=== PATIENT | female | born 1965 | race Caucasian/White ===

== ENCOUNTER 2020-03-08 19:59 | Emergency (ER) | payer OTHER ==
--- OUTSIDE RECORDS SUMMARY | 2020-03-08 20:00 | XMS REPORT | Clinical Summary ---
:1965 Author Organization [facility] Address [address] [place] [address] Care Team Providers Name Role Phone Rip Primary Care Provider Allergies Active Allergy Reactions Severity Noted Date Comments No Known Drug Allergies 07/07/2015 Medications Medication Sig Dispensed Refills Start Date End Date Status valACYclovir (VALTREX) Take 500 mg by 0 Active 500 MG tablet mouth daily as needed for Outbreaks. ibuprofen Take 800 mg by 0 Activ e (ADVIL,MOTRIN) 800 MG mouth every 6 tablet (six) hours as needed for Pain. amLODIPine (NORVASC) Take 10 mg by 0 Active 10 MG tablet mouth daily. citalopram (CELEXA) 20 Take 20 mg by 0 Active MG tablet mouth daily. rosuvastatin (CRESTOR) Take 10 mg by 0 Active 10 MG tablet mouth daily. FERROUS FUMARATE (IRON Take 28 mg by 0 Active ORAL) mouth daily. POTASSIUM GLUCONATE Take 99 mg by 0 Active ORAL mouth daily. GLUCOSAMINE/CHONDROITI Take by mouth 2 0 Active N SULF A (two) times daily. (GLUCOSAMINE-CHONDROIT IN ORAL) multivitamin capsule Take 1 capsule by 0 Active mouth daily. imiquimod (ALDARA) 5 % Apply topically 3 0 Active cream (three) times a week Wash hands before and after use. Do not cover. Discard unused portion. . Active Problems Not on file Social History Tobacco Use Types Packs/Day Years Used Date Current Every Day Smoker 0.5 35 Smokeless Tobacco: Never Used Alcohol Use Drinks/Week oz/Week Comments No Sex Assigned at Date Recorded Not on file Last Filed Vital Signs Not on file Plan of Treatment Not on file Results Not on fileafter 03/08/2019 Insurance Payer Benefit Plan / Subscriber ID Effective Dates Phone Addre ss Type Group AETNA - MGD AETNA HMO POS [id number] 2016-Present HMO/POS CARE QPOS
--- OUTSIDE RECORDS SUMMARY | 2020-03-08 20:01 | XMS REPORT | Continuity of Care Document ---
:1965 Author Organization [facility] t Address 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 Family History Family Member Diagnosis Comments Start Date Stop Date Source Maternal aunt Brain cancer MD [facility] on Maternal grandmother Lung cancer MD Chao Natural mother Breast cancer MD Ancelmo gomez Natural mother Leukemia MD Mychal patton Social History Social Habit Start Date Stop Date Quantity Comments Source Sex Assigned At MD [facility] Cigarettes smoked 2019-01-19 2019-01-19 MD Ancelmo gomez current (pack per 00:00:00 00:00:00 day) - Reported Cigarette pack-years 2019-01-19 2019-01-19 MD Gonzalo chavez 00:00:00 00:00:00 Tobacco use and 2019-01-19 2019-01-19 Never used MD [facility] exposure 00:00:00 00:00:00 Alcohol intake 2019-01-19 2019-01-19 Ex-drinker MD Mychal patton 00:00:00 00:00:00 (finding) History of tobacco 1977-12-06 2019-01-14 Current smoker MD Chao use 00:00:00 00:00:00 Smoking Status Start Date Stop Date Source Former smoker 2019-01-19 00:00:00 2019-01-19 00:00:00 MD Brown son Current every day 2017-01-08 00:00:00 [facility] Medications Ordered Filled Start Stop Current Ordering Indication Dosage Frequency Signature Comments Components Source Medication Medication Date Date Medication? Clinician (SIG) Name Name varenicline 2018-04 Yes Tobacco TAKE 1 M D (CHANTIX) 1 05-23 dependence TABLET BY Anderso mg tablet 00:00: syndrome MOUTH n 00 TWICE A DAY CHANTIX 2018-04- No Tobacco TAKE 1 MD mg tablet 05-16 dependence TABLET BY Anderso 00:00: 00:00 syndrome MOUTH n 00 :00 TWICE A DAY CHANTIX 2018-04- No Tobacco TAKE 1 MD mg tablet 003-16 dependence TABLET BY Anderso 00:00: 00:00 syndrome MOUTH n 00 :00 TWICE A DAY CHANTIX 2018-04- No Tobacco 1mg Take 1 MD mg tablet 003-23 dependence tablet (1 Anderso 00:00: 00:00 syndrome mg) by n 00 :00 mouth twice daily. acetaminoph Yes TAKE 1 MD en-codeine 8-30 TABLET BY Ancelmo bennett (TYLENOL 00:00: MOUTH n #3) 300 00 EVERY 6 mg-30 mg HOURS tablet NEEDED FOR PAIN meloxicam Yes TAKE 1 MD (MOBIC) 15 8-29 TABLET BY Ancelmo rso mg tablet 00:00: MOUTH n 00 EVERY DAY temazepam 2018- Yes TK ONE C MD (RESTORIL) 7-30 PO QHS PRN And erso 30 mg 00:00: n capsule 00 AMLODIPINE 2018- Yes 10mg Take 10 mg M D BESYLATE, 5-08 by mouth Andreas o BULK, MISC 20:29: daily. n 18 diphenhydrA 2018 Yes 25mg Take 25 mg MD MINE 5-08 by mouth Anderso (BENADRYL) 20:29: as needed. n 25 mg 18 capsule MULTIVITAMI 2019- Yes 1{tbl} Take 1 MD N/IRON/FOLI 5-08 tablet by And erso C ACID 20:29: mouth. n (CENTRUM 18 COMPLETE ORAL) citalopram Yes 20mg Take 20 mg M D (CeleXA) 20 5-08 by mouth Ancelmo rso mg tablet 20:29: daily. n 18 rosuvastati 2019 Yes 10mg Take 10 mg MD n (CRESTOR) 5-08 by mouth Ancelmo rso 10 mg 20:29: daily. n tablet 18 GLUC/CHND/O Yes Take by MD M3/DHA/EPA/ 5-08 mouth. Andreas o FISH/STR 20:29: n (GLUCOSAMIN 18 E CHONDROITIN PLUS ORAL) POTASSIUM Yes 1{tbl} Take 1 MD ORAL 5-08 tablet by Anderso 20:29: mouth n 18 daily. aspirin 81 Yes 81mg Take 81 mg M D mg EC 5-08 by mouth Anderso tablet 20:29: daily. n 18 CALCIUM Yes Take by ACETATE, 5-08 mouth Anderso BULK, MISC 20:29: daily. n 18 traMADol Yes 50mg Take 50 mg MD (ULTRAM) 50 5-08 by mouth Ancelmo rso mg tablet 20:29: every 6 n 18 (six) hours as needed. cyclobenzap Yes 10mg Take 10 mg MD rine 5-08 by mouth Anderso (FLEXERIL) 20:29: as needed. n 10 mg 18 tablet valACYclovi Yes 500mg Take 500 M D r (VALTREX) 5-08 mg by Anderso 500 mg 20:29: mouth as n tablet 18 needed. valACYclovi Yes 500mg Take [address] r (VALTREX) 9-13 mg by [facility] - 500 MG 10:43: mouth Medical tablet 27 daily as Center needed for Outbreaks. ibuprofen 2017 Yes 800mg Take [address] [facility] (ADVIL,MOTR 9-13 mg by [facility] - [place]) 800 MG 10:43: mouth Medica l tablet 27 every 6 Center (six) hours as needed for Pain. amLODIPine Yes 10mg QD Take [address] (NORVASC) 9-13 by mouth [facility] - 10 MG 10:43: daily. Medical tablet [address] [place] citalopram Yes 20mg QD Take [address] (CELEXA) 20 9-13 by mouth [facility] - MG tablet 10:43: daily. Medica l [address] [place] rosuvastati Yes 10mg QD Take [address] [facility] n (CRESTOR) 9-13 by mouth [facility] - 10 MG 10:43: daily. Medical tablet 27 [place] FERROUS Yes 28mg QD Take [address] [facility] FUMARATE 9-13 by mouth [facility] - (IRON ORAL) 10:43: daily. Medi mouna [address] [place] POTASSIUM Yes 99mg QD Take [address] GLUCONATE 9-13 by mouth [facility] - ORAL 10:43: daily. [address] GLUCOSAMINE Yes Q.5D Take by [facility] /CHONDROITI 01-08 mouth 2 [facility] - N SULF A 10:43: (two) Medical (GLUCOSAMIN 27 times Center E-CHONDROIT daily. IN ORAL) multivitami Yes 1{capsu QD Take [address] n capsule 01-08 le} capsule by [facility] - 10:43: mouth Medical 27 daily. [place] imiquimod Yes [id number] Apply [facility] (ALDARA) 5 9- [id number] topically [facility] - % cream 10:43: 3W 3 (three) Medic al 27 times a Center week Wash hands before and after use. Do not cover. Discard unused portion. . Procedures This patient has no known procedures. Results Test Description Test Time Test Comments Results Result Comments Source TISSUE EXAM 2017-01-09 Surgical Pathology 10:20:00 Report Case: [id number] Authorizing Provider: Myles Duque MD Collected: 01/08/201718 Ordering Location: [facility] Received: 01/08/2017 1146 Pathologist: Stephie Robles MD Specimen: Polyp, Colon - Rectum, x3 COLON, RECTAL POLYPS X3, BIOPSY: - HYPERPLASTIC POLYPS Signing Pathologist Direct Phone Line: [phone] cheng signed by Stephie Robles MD on 01/09/2017 at 10:20 [id number] colonoscopyPolyp, colon rectum [id number] is received in fixative and designated as "polyp, colon rectum", and consists of three pink-liu tissue fragments ranging in size from 0.2 to 0.3 cm, in greatest dimension. The specimen is entirely submitted into A1. MG/pl Performed [facility] [place], Department of Pathology, [address] [place] [id number], Rvewlx [facility], Department of Pathology, [address] [place] [id number], [facility] [place], Department of [facility]ology, [address] [place] [id number], BASIC METABOLIC PANEL 2016-12-16 11:13:00 Test Item Value Reference Range Interpretation Comme nts SODIUM (BEAKER) (test code 145 meq/L 135-148 = 381) POTASSIUM (BEAKER) (test 4.1 meq/L 3.6-5.5 code = 379) CHLORIDE (BEAKER) (test 109 meq/L 98-106 H code = 382) CO2 (BEAKER) (test code = 29 meq/L 20-29 355) BLOOD UREA NITROGEN 14 mg/dL 10-26 (BEAKER) (test code = 354) CREATININE (BEAKER) (test 0.70 mg/dL 0.50-1.20 code = 358) GLUCOSE RANDOM (BEAKER) 93 mg/dL 70-110 (test code = 652) CALCIUM (BEAKER) (test code 9.1 mg/dL 8.5-10.5 = 697) EGFR (BEAKER) (test code = 88 mL/min/1.73 sq m ESTIMATED GFR IS NOT 1092) ACCURATE CRE ATININE CLEARANCE IN GA EDICTING GLOMERULAR FILT RATION RATE. ESTIMATED GFR IS NOT APPLICABLE FOR DIALYSIS PATIENTS. CBC W/PLT COUNT & AUTO [id number] 10:43:00 Test Item Value Reference Range Interpretation Comments WHITE BLOOD CELL COUNT (BEAKER) 6.9 K/ L 4.0-10.0 (test code = 775) RED BLOOD CELL COUNT (BEAKER) 4.25 M/ L 4.00-5.00 (test code = 761) HEMOGLOBIN (BEAKER) (test code = 12.7 GM/DL 12.0-15.0 410) HEMATOCRIT (BEAKER) (test code = 38.7 % 36.0-45.0 411) MEAN CORPUSCULAR VOLUME (BEAKER) 91.2 fL 82.0-99.0 (test code = 753) MEAN CORPUSCULAR HEMOGLOBIN 30.0 pg 27.0-33.0 (BEAKER) (test code = 751) MEAN CORPUSCULAR HEMOGLOBIN CONC 32.9 GM/DL 32.0-36.0 (BEAKER) (test code = 752) RED CELL DISTRIBUTION WIDTH 13.9 % 10.3-14.2 (BEAKER) (test code = 412) PLATELET COUNT (BEAKER) (test 284 K/CU MM 150-430 code = 756) MEAN PLATELET VOLUME (BEAKER) 8.3 fL 6.5-10.5 (test code = 754) NUCLEATED RED BLOOD CELLS 0 /100 WBC 0-0 (BEAKER) (test code = 413) NEUTROPHILS RELATIVE PERCENT 61 % (BEAKER) (test code = 429) LYMPHOCYTES RELATIVE PERCENT 31 % (BEAKER) (test code = 430) MONOCYTES RELATIVE PERCENT 6 % (BEAKER) (test code = 431) EOSINOPHILS RELATIVE PERCENT 1 % (BEAKER) (test code = 432) BASOPHILS RELATIVE PERCENT 0 % (BEAKER) (test code = 437) NEUTROPHILS ABSOLUTE COUNT 4.20 K/ L 1.80-8.00 (BEAKER) (test code = 670) LYMPHOCYTES ABSOLUTE COUNT 2.10 K/ L 1.48-4.50 (BEAKER) (test code = 414) MONOCYTES ABSOLUTE COUNT (BEAKER) 0.40 K/ L 0.00-1.30 (test code = 415) EOSINOPHILS ABSOLUTE COUNT 0.10 K/ L 0.00-0.50 (BEAKER) (test code = 416) BASOPHILS ABSOLUTE COUNT (BEAKER) 0.00 K/ L 0.00-0.20 (test code = 417)
[2020-03-08 20:30] LABS: Absolute Lymphocytes (CBC) 2.2 K/uL (0.7-4.9); Basophils % 0.5 % (0-1.3); Hematocrit 39.6 % (36.0-45.0); Lymphocytes % 16.5 % (15.3-44.8); MPV 8.7 fL (7.6-11.3); RBC Red Blood Cell Count 4.33 M/uL (3.86-4.86)
[2020-03-08] MEDS ORDERED: NA CHLORIDE 0.9% 1,000 ML ONE (20:32)
[2020-03-08] MEDS ORDERED: ONDANSETRON 4 MG/2 ML VIAL ONE (20:32)
[2020-03-08] MEDS ORDERED: MORPHINE 4 MG/ML SYR ONE ×2 (20:32→21:17)
[2020-03-08 20:45] LABS: Potassium 3.2 mmol/L (3.5-5.1)
[2020-03-08] MEDS ORDERED: FENTANYL CITR 100 MCG/2 ML ONE (21:52)
--- NOTE | 2020-03-08 22:20 | ER ---
Nurse's Notes [facility] Name: Amie Rivera Age: 54 yrs Sex: Female : 1965 Arrival Date: 03/08/2020 Time: 19:59 Bed 5 Private MD: Diagnosis: Calculus of kidney and ureter Presentation: 03/08 20:10 Chief complaint: Patient states: RLQ pain started around 1600 today and has dm5 progressively gotten worse. Pt c/o nausea, denies vomiting. Pt states that she had a BM this morning but it was small. Pt states that she was told by the [facility] that she could have a UTI and took some antibiotics and AZO this evening. Pt now reports pain at 10/10. Pt appears to be unable to focus and is restless. Coronavirus screen: Client denies travel out of the [place] in the last 14 days. At this time, the client does not indicate any symptoms associated with coronavirus-19. Ebola Screen: Patient negative for fever greater than or equal to 101.5 degrees Fahrenheit, and additional compatible Ebola Virus Disease symptoms Patient denies exposure to infectious person. Patient denies travel to an Ebola-affected area in the 21 days before illness onset. No symptoms or risks identified at this time. Initial Sepsis Screen: Does the patient meet any 2 criteria? RR > 20 per min. No. Patient's initial sepsis screen is negative. Does the patient have a suspected source of infection? Yes: Acute abdominal pain. Risk Assessment: Do you want to hurt yourself or someone else? Patient reports no desire to harm self or others. Onset of symptoms was March 08, 2020. 20:10 Method Of Arrival: Ambulatory dm5 20:10 Acuity: KIM 2 dm5 Historical: - Allergies: 21:32 No Known Allergies; wh - PMHx: 21:34 Back Pain; wh - PSHx: 21:34 Cholecystectomy; wh - Immunization history:: Adult Immunizations not up to date. - Social history:: Smoking status: Patient reports the use of cigarette tobacco products, smokes one pack cigarettes per day. Screenin:30 Abuse screen: Denies threats or abuse. Denies injuries from another. Nutritional wh screening: No deficits noted. Tuberculosis screening: No symptoms or risk factors identified. Fall Risk None identified. Assessment: 20:15 General: Appears in no apparent distress. uncomfortable, Behavior is cooperative, wh appropriate for age. Pain: Complains of pain in right lower quadrant Pain does not radiate. Pain currently is 9 out of 10 on a pain scale. Quality of pain is described as dull, sharp, Pain began 4 hours ago. Is intermittent. Neuro: Level of Consciousness is awake, alert, obeys commands, Oriented to person, place, time, situation, Appropriate for age. Cardiovascular: Capillary refill < 3 seconds. Respiratory: Airway is patent Respiratory effort is even, unlabored, Respiratory pattern is regular, symmetrical. GI: Abdomen is round non-distended, Abd is soft Abdomen is tender to palpation in right lower quadrant. GI: Reports lower abdominal pain, nausea. : No signs and/or symptoms were reported regarding the genitourinary system. EENT: No signs and/or symptoms were reported regarding the EENT system. Derm: Skin is intact, is healthy with good turgor, Skin is pink, warm \T\ dry. normal. Musculoskeletal: Circulation, motion, and sensation intact. 21:00 Reassessment: Patient appears in no apparent distress at this time. Patient is alert, rr5 oriented x 3, equal unlabored respirations, skin warm/dry/pink. complaining of right bottom abdominal pain, ED provider aware with order made and carried out. 21:28 Reassessment: Pt returned from CT scan. 23:07 Reassessment: Patient is alert, oriented x 3, equal unlabored respirations, skin ea warm/dry/pink. Awaiting on magnesium to complete. 23:30 Reassessment: Patient is alert, oriented x 3, equal unlabored respirations, skin bb warm/dry/pink. pt verbalized understanding of and agrees to plan of care discharge instructions given pt assisted to exit via wheelchair accompanied by this RN and spouse. Vital Signs: 20:10 BP 132 / 63; Pulse 78; Resp 26; Temp 97.6(TE); Pulse Ox 100% on R/A; Weight 95.25 kg; dm5 Height 5 ft. 3 in. (160.02 cm); Pain 10/10; 21:32 BP 133 / 83; Pulse 88; Resp 18; Pulse Ox 97% on R/A; wh 23:30 BP 108 / 72; Pulse 81; Resp 14 S; Temp 97.5(O); Pulse Ox 99% on R/A; bb 20:10 Body Mass Index 37.20 (95.25 kg, 160.02 cm) dm5 ED Course: 19:59 Patient arrived in ED. cl3 20:10 Sowmya James FNP-C is [facility]. kb 20:10 Inserted saline lock: 20 gauge in right antecubital area, using aseptic technique. rr5 ,using aseptic technique. inserted by [facility] tech Blood collected. 20:11 Iggy Richardson MD is Attending Physician. kb 20:13 Triage completed. dm5 20:24 Nohemy Rosa is Primary Nurse. wh 20:30 Arm band placed on right wrist. wh 20:30 Patient has correct armband on for positive identification. Bed in low position. Call light in reach. Side rails up X 1. Pulse ox on. NIBP on. 21:35 CT Abd/Pelvis - IV Contrast Only In Process Unspecified. EDMS 23:31 No provider procedures requiring assistance completed. IV discontinued, intact, bb bleeding controlled, No redness/swelling at site. Pressure dressing applied. Administered Medications: 20:20 Drug: NS 0.9% 1000 ml Route: IV; Rate: 1000 ml; Site: right antecubital; 21:40 Follow up: Response: No adverse reaction; IV Status: Completed infusion 20:22 Drug: morphine 4 mg Route: IVP; Site: right antecubital; 21:40 Follow up: Response: No adverse reaction; Pain is unchanged, physician notified; RASS: Alert and Calm (0) 20:24 Drug: Zofran (Ondansetron) 4 mg Route: IVP; Site: right antecubital; 21:40 Follow up: Response: No adverse reaction; Nausea is decreased 21:05 Drug: morphine 4 mg {Note: rass 0.} Route: IVP; Site: right antecubital; rr5 21:40 Follow up: Response: No adverse reaction; Pain is decreased; RASS: Alert and Calm (0) 21:44 Drug: fentaNYL (PF) 50 mcg Route: IVP; Site: right antecubital; 22:38 Follow up: Response: No adverse reaction; Pain is decreased; RASS: Alert and Calm (0) 22:37 Drug: TORadol - Ketorolac 15 mg Route: IVP; Site: right antecubital; 23:21 Follow up: Response: No adverse reaction bb 22:38 Drug: Flomax 0.4 mg Route: PO; 23:21 Follow up: Response: No adverse reaction bb 22:38 Drug: Magnesium Sulfate 1 grams Route: IVPB; Infused Over: 30 mins; Site: right antecubital; 23:10 Follow up: IV Status: Completed infusion; IV Intake: 100ml bb Intake: 23:10 IV: 100ml; Total: 100ml. bb Outcome: 22:19 Discharge ordered by . kb 23:31 Discharged to home via wheelchair, with family. bb 23:31 Condition: stable 23:31 Discharge instructions given to patient, Instructed on discharge instructions, follow up and referral plans. medication usage, Demonstrated understanding of instructions, follow-up care, medications, Prescriptions given X 3. 23:32 Patient left the ED. bb Signatures: Dispatcher [employer] EDMS Sowmya James, ROSMERY-C PIGMENT PROCESSOR-Liana Nino, RN RN dm5 Brdigett Alanis RN RN Jordyn Espitia, RN Nohemy Hanley ea, Raymond, RN RN rr5 Fernie Padilla cl3
--- NOTE | 2020-03-08 22:20 | EDPHYS ---
Physician Documentation [facility] Name: Amie Rivera Age: 54 yrs Sex: Female : 1965 Arrival Date: 03/08/2020 Time: 19:59 Bed 5 Private MD: ED Physician Iggy Richardson HPI: 03/08 20:20 This 54 yrs old Female presents to ER via Ambulatory with complaints of Right kb Bottom Abdominal Pain. 20:20 The patient presents with abdominal pain right lower quadrant. Onset: The kb symptoms/episode began/occurred today, at 16:00. The symptoms do not radiate. Associated signs and symptoms: none. The symptoms are described as sharp. Modifying factors: The symptoms are alleviated by nothing, the symptoms are aggravated by pressure. Severity of pain: At its worst the pain was severe in the emergency department the pain is unchanged. The patient has not experienced similar symptoms in the past. The patient has not recently seen a physician. Historical: - Allergies: 21:32 No Known Allergies; wh - PMHx: 21:34 Back Pain; wh - PSHx: 21:34 Cholecystectomy; wh - Immunization history:: Adult Immunizations not up to date. - Social history:: Smoking status: Patient reports the use of cigarette tobacco products, smokes one pack cigarettes per day. ROS: 20:20 Constitutional: Negative for fever, chills, and weight loss, Cardiovascular: Negative kb for chest pain, palpitations, and edema, Respiratory: Negative for shortness of breath, cough, wheezing, and pleuritic chest pain, Back: Negative for injury and pain, MS/Extremity: Negative for injury and deformity, Skin: Negative for injury, rash, and discoloration, Neuro: Negative for headache, weakness, numbness, tingling, and seizure. 20:20 Abdomen/GI: Positive for abdominal pain, Negative for nausea, vomiting, and diarrhea. Exam: 20:20 Head/Face: Normocephalic, atraumatic. Chest/axilla: Normal chest wall appearance and kb motion. Nontender with no deformity. No lesions are appreciated. Cardiovascular: Regular rate and rhythm with a normal S1 and S2. No gallops, murmurs, or rubs. Normal PMI, no JVD. No pulse deficits. Respiratory: Lungs have equal breath sounds bilaterally, clear to auscultation and percussion. No rales, rhonchi or wheezes noted. No increased work of breathing, no retractions or nasal flaring. Back: No spinal tenderness. No costovertebral tenderness. Full range of motion. Skin: Warm, dry with normal turgor. Normal color with no rashes, no lesions, and no evidence of cellulitis. MS/ Extremity: Pulses equal, no cyanosis. Neurovascular intact. Full, normal range of motion. Neuro: Awake and alert, GCS 15, oriented to person, place, time, and situation. Cranial nerves II-XII grossly intact. Motor strength 5/5 in all extremities. Sensory grossly intact. Cerebellar exam normal. Normal gait. 20:20 Constitutional: The patient appears alert, awake, in obvious pain. 20:20 Abdomen/GI: Inspection: obese Bowel sounds: normal, in all quadrants, Palpation: soft, in all quadrants, severe abdominal tenderness, in the right lower quadrant. Vital Signs: 20:10 BP 132 / 63; Pulse 78; Resp 26; Temp 97.6(TE); Pulse Ox 100% on R/A; Weight 95.25 kg; dm5 Height 5 ft. 3 in. (160.02 cm); Pain 10/10; 21:32 BP 133 / 83; Pulse 88; Resp 18; Pulse Ox 97% on R/A; wh 23:30 BP 108 / 72; Pulse 81; Resp 14 S; Temp 97.5(O); Pulse Ox 99% on R/A; bb 20:10 Body Mass Index 37.20 (95.25 kg, 160.02 cm) dm5 MDM: 20:11 Patient medically screened. kb 20:19 Data reviewed: vital signs, nurses notes. Data interpreted: Pulse oximetry: on room air kb is 100 %. Interpretation: normal. 22:13 Counseling: I had a detailed discussion with the patient and/or guardian regarding: the kb historical points, exam findings, and any diagnostic results supporting the discharge/admit diagnosis, lab results, radiology results, the need for outpatient follow up, a family practitioner, to return to the emergency department if symptoms worsen or persist or if there are any questions or concerns that arise at home. 03/08 20:14 Order name: Basic Metabolic Panel; Complete Time: 20:46 kb 03/08 20:14 Order name: CBC with Diff; Complete Time: 20:38 kb 03/08 20:14 Order name: CT Abd/Pelvis - IV Contrast Only kb 03/08 22:48 Order name: Urine Dipstick--Ancillary (enter results); Complete Time: 23:15 mt 03/08 20:14 Order name: IV Saline Lock; Complete Time: 20:25 kb 03/08 20:14 Order name: Labs collected and sent; Complete Time: 20:25 kb 03/08 22:15 Order name: Urine Dipstick-Ancillary (obtain specimen); Complete Time: 22:38 kb Administered Medications: 20:20 Drug: NS 0.9% 1000 ml Route: IV; Rate: 1000 ml; Site: right antecubital; 21:40 Follow up: Response: No adverse reaction; IV Status: Completed infusion 20:22 Drug: morphine 4 mg Route: IVP; Site: right antecubital; 21:40 Follow up: Response: No adverse reaction; Pain is unchanged, physician notified; RASS: Alert and Calm (0) 20:24 Drug: Zofran (Ondansetron) 4 mg Route: IVP; Site: right antecubital; 21:40 Follow up: Response: No adverse reaction; Nausea is decreased 21:05 Drug: morphine 4 mg {Note: rass 0.} Route: IVP; Site: right antecubital; rr5 21:40 Follow up: Response: No adverse reaction; Pain is decreased; RASS: Alert and Calm (0) 21:44 Drug: fentaNYL (PF) 50 mcg Route: IVP; Site: right antecubital; 22:38 Follow up: Response: No adverse reaction; Pain is decreased; RASS: Alert and Calm (0) 22:37 Drug: TORadol - Ketorolac 15 mg Route: IVP; Site: right antecubital; 23:21 Follow up: Response: No adverse reaction 22:38 Drug: Flomax 0.4 mg Route: PO; 23:21 Follow up: Response: No adverse reaction 22:38 Drug: Magnesium Sulfate 1 grams Route: IVPB; Infused Over: 30 mins; Site: right antecubital; 23:10 Follow up: IV Status: Completed infusion; IV Intake: 100ml bb Disposition: 03/09 02:10 Co-signature as Attending Physician, Iggy Richardson MD. rn Disposition: 03/08/20 22:19 Discharged to Home. Impression: Calculus of kidney and ureter. - Condition is Stable. - Discharge Instructions: Kidney Stones, [id number], Dietary Guidelines to Help Prevent Kidney Stones. - Prescriptions for Zofran 4 mg Oral Tablet - take 1 tablet by ORAL route every 6 hours As needed; 20 tablet. Flomax 0.4 mg Oral Capsule, Sust. Release 24 hr - take 1 capsule by ORAL route once daily; 10 capsule. Diclofenac Sodium 75 mg Oral Tablet, Delayed Release (E.C.) - take 1 tablet by ORAL route 2 times per day As needed; 30 tablet. - Medication Reconciliation Form, Thank You Letter, Antibiotic Education, Prescription Opioid Use, Work release form form. - Follow up: Emergency Department; When: As needed; Reason: Worsening of condition. Follow up: Private Physician; When: 2 - 3 days; Reason: Recheck today's complaints, Continuance of care, Re-evaluation by your physician. Signatures: Dispatcher [employer] EDMS Sowmya James, BUSINESS OFFICE TECHNICIAN-C BUSINESS OFFICE TECHNICIAN-Bridgett Julio, RN RN bb Iggy Richardson MD MD rn Habalo, Winsy wh Roque, Raymond RN RN rr5 Corrections: (The following items were deleted from the chart) 03/08 23:32 22:19 03/08/2020 22:19 Discharged to Home. Impression: Calculus of kidney and ureter. bb Condition is Stable. Forms are Medication Reconciliation Form, Thank You Letter, Antibiotic Education, Prescription Opioid Use. Follow up: Emergency Department; When: As needed; Reason: Worsening of condition. Follow up: Private Physician; When: 2 - 3 days; Reason: Recheck today's complaints, Continuance of care, Re-evaluation by your physician. kb
[2020-03-08] MEDS ORDERED: MAGNESIUM SULFATE 1 gm IVPB 1 GM/100 ML BAG IV ONE (22:41)
[2020-03-08] MEDS ORDERED: KETOROLAC 30 MG/ML INJ ONE (22:41)
[2020-03-08] MEDS ORDERED: TAMSULOSIN 0.4 MG SR CAP ONE (22:41)
[2020-03-08 23:12] LABS: Urine Blood TRACE (NEG); Urine Glucose TRACE (NEG); Urine Protein NEGATIVE (NEG); Urine Specific Gravity 1.015 (1.005-1.030)
[2020-03-08 23:42] VITALS: BP 108/72; TEMP 97.5; O2SAT 99
--- NOTE | 2020-03-09 14:28 | RAD REPORT ---
EXAM DESCRIPTION: CT Abdomen and Pelvis With Intravenous Contrast CLINICAL HISTORY: The patient is 54 years old and is Female; ABD PAIN TECHNIQUE: Axial computed tomography images of the abdomen and pelvis with intravenous contrast. S agittal and coronal reformatted images were created and reviewed. This CT exam was performed using one or more of the following dose reduction techniques: automated exposure control, adjustment of t he mA and/or kV according to patient size, and/or use of iterative reconstruction technique. COMPARISON: No relevant prior studies available. FINDINGS: Lung bases: Unremarkable. No mass. No consolidation. ABDOMEN: Liver: Unremarkable. No mass. Gallbladder and bile ducts: Cholecystectomy. No ductal dilation. Pancreas: Unremarkable. No mass. No ductal dilation. Spleen: Unremarkable. No splenomegaly. Adrenals: Unremarkable. No mass. Kidneys and ureters: Punctate calculus at the right distal ureter at the ureterovesical junction resulting in mild right hydroureteronephrosis. Stomach and bowel: Colonic diverticulosis without evidence of diverticulitis. Gastric postsurgical changes No obstruction. PELVIS: Appendix: The appendix is seen and is within normal limits Bladder: Unremarkable. No mass. Reproductive: Unremarkable as visualized. ABDOMEN and PELVIS: Intraperitoneal space: Unremarkable. No free air. No significant fluid collection. Bones/joints: No acute fracture. No dislocation. Soft tissues: Unremarkable. Vasculature: Scattered atherosclerotic vascular calcifications. No abdominal aortic aneurysm. Lymph nodes: Unremarkable. No enlarged lymph nodes. IMPRESSION: 1. Punctate calculus at the right distal ureter at the ureterovesical junction resulti ng in mild right hydroureteronephrosis. 2. Colonic diverticulosis without evidence of diverticulitis. Electronically signed by: Pancho Swann MD 03/08/2020 9:53 PM UNMANNED EQUIPMENT OPERATOR Due to temporary technical issues with the PACS/Fluency reporting system, reports are being signed by the in house radiologists without review as a courtesy to insure prompt reporting. The interpreting radiologist is fully responsible for the content of the report.
== END 2020-03-08 23:32 | disposition home or self-care (01) ==
LOC: ER 19:59
DX: N20.2 Calculus of kidney with calculus of ureter (principal); F17.210 Nicotine dependence, cigarettes, uncomplicated
CPT/HCPCS: 96365; 96361; 85025; 80048; 36415; 81003; 74177; 96375; 99284; Q9967; J3010; J3475; J7030; J2405

== ENCOUNTER 2021-07-26 13:40 | Observation (INO) | payer OTHER ==
--- OUTSIDE RECORDS SUMMARY | 2021-07-26 13:43 | XMS REPORT | Clinical Summary ---
:1965 Author Organization [facility] MD [facility] Address [address] [place] [address] Care Team Providers Name Role Phone Marisela Stone MD Primary Care Provider Lincoln Weston MD Unavailable Unavailable Lincoln Weston MD Unavailable Unavailable Marisela Stone MD Unavailable Allergies No known active allergies Medications Medication Sig Dispensed Refills Start Date End Date Status AMLODIPINE BESYLATE, Take 10 mg by 0 Active BULK, MISC mouth daily. diphenhydrAMINE Take 25 mg by 0 Active (BENADRYL) 25 mg capsule mouth as needed. MULTIVITAMIN/IRON/FOLIC Take 1 tablet 0 Active ACID (CENTRUM COMPLETE by mouth. ORAL) citalopram (CeleXA) 20 mg Take 20 mg by 0 Active tablet mouth daily. rosuvastatin (CRESTOR) 10 Take 10 mg by 0 Active mg tablet mouth daily. GLUC/CHND/OM3/DHA/EPA/FIS Take by mouth. 0 Active H/STR (GLUCOSAMINE CHONDROITIN PLUS ORAL) POTASSIUM Take 1 tablet 0 Active ORALIndications: by mouth daily. potassium gluconate 99mg aspirin 81 mg EC tablet Take 81 mg by 0 Active mouth daily. CALCIUM ACETATE, BULK, Take by mouth 0 Active MISC daily. traMADol (ULTRAM) 50 mg Take 50 mg by 0 Active tablet mouth every 6 (six) hours as needed. cyclobenzaprine Take 10 mg by 0 Active (FLEXERIL) 10 mg tablet mouth as needed. valACYclovir (VALTREX) Take 500 mg by 0 Active 500 mg tablet mouth as needed. 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 Encounters Date Type Specialty Care Team Description 08/04/2020 Orders Only Ramo Peguero MD SARS-CoV -2 vaccination after 07/26/2020 Surgical History Surgery Date Site/Laterality Comments CHOLECYSTECTOMY 04/28/2012 - 04/27/2013 TONSILLECTOMY 04/28/2007 - 04/27/2008 GASTRIC RESTRICTION SURGERY 03/28/2015 - Anita mayra Sleeve 04/27/2015 Placement WISDOM TOOTH EXTRACTION 04/28/1980 - 04/27/1981 EXCISION LESION VULVA 04/28/2015 - Left 05/28/2015 Medical History Medical History Date Comments Vulvar intraepithelial neoplasia III (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) Hypertension Obesity Depression Substance abuse Sober now, crack lottie dl since 2007 Hyperlipidemia Chronic back pain Gallstone Family History Medical History Relation Name Comments Brain cancer Maternal Aunt Lung cancer Maternal Grandmother Breast cancer Mother Leukemia Mother Relation Name Status Comments Maternal Aunt Maternal Grandmother Mother Social History Tobacco Use Types Packs/Day Years Used Date Former Smoker Cigarettes 2 39 12/06/1977 - 0 01/14/2019 Smokeless Tobacco: Never Used Tobacco Cessation: Ready to Quit: Yes; C ounseling Given: Yes Alcohol Use Standard Drinks/Week Comments Not Currently 0 (1 standard drink = 0.6 oz pure alcoho l) Sex Assigned at Date Recorded Not on file Obstetrics History Para Term AB IAB SAB Ectopic Multiple Living Live Births 4 0 0 0 3 0 1 0 0 0 Date Outcome GA Total Labor/2nd/3rd Weight Sex Delivery Anes PTL Danita A 1 A5 Name Clin Labor SAB AB AB Last Filed Vital Signs Not on file Plan of Treatment Health Maintenance Due Date Last Done Comments COVID-19 Vaccination (1) 10/26/1968 Results Not on fileafter 07/26/2020 Insurance Payer Benefit Plan / Subscriber ID Effective Dates Phone Addre ss Type Group AETNA MANAGED AETNA O [id number] 2016-Presen PO MEE X [address] [place] [address] Care Teams Safe Deposit Attendant Relationship Specialty Start Date End Date Taylor Stone MD PCP - General 06/28/[address] [place] [id number] Christopher Weston MD PCP - External Referring 1 06/18/14 Christopher Weston MD PCP - External Follow Up A 04/17/15 Taylor Stone MD Physician 07/05/[address] [place] [id number]
--- OUTSIDE RECORDS SUMMARY | 2021-07-26 13:43 | XMS REPORT | Continuity of Care Document ---
:1965 Author Organization [facility] t Address [address] [place] [address] Care Team Providers Name Role Phone Marisela Stone MD Primary Care Physician Adrian OSEGUERA Attending Clinician Jo-Ann Crawley Attending Clinician Unavailable JUAN FRANCISCO DUQUE Attending Clinician Unavailable Physician, Primary or Family Admitting Clinician UnavailJUAN FRANCISCO Bruner Admitting Clinician Unavailable Payers Payer Name Policy Type Policy Number Effective Date Expiration Date S eliud AETNA MANAGED [id number] 2016 MD Chao CAREAETNA 00:00:00 [id number] 10/2016-[facility] [id number] [address]VRE Problems Condition Condition Condition Status Onset Resolution Last Treating Co mments Source Name Details Category Date Date Treatment Clinician Date Tobacco Tobacco Disease Active dependence dependence 8- An derso syndrome syndrome 00:00: n 00 [...] Start Date Stop Date Quantity Comments Source Cigarettes smoked 2019-01-19 2019-01-19 MD Ancelmo gomez current (pack per 00:00:00 00:00:00 day) - Reported Cigarette 2019-01-19 2019-01-19 MD Chao pack-years 00:00:00 00:00:00 Tobacco use and 2019-01-19 2019-01-19 Smokeless tobacco MD Chao exposure 00:00:00 00:00:00 non-user Alcohol intake 2019-01-19 2019-01-19 Ex-drinker MD Mychal patton 00:00:00 00:00:00 (finding) History of tobacco 1977-12-06 2019-01-14 Current smoker MD Chao use 00:00:00 00:00:00 Sex Ass[birth year] At [birth year] MD [facility] 00:00:00 00:00:00 Smoking Status Start Date Stop Date Source Ex-smoker 2019-01-19 00:00:00 2019-01-19 00:00:00 MD Brown son Medications Ordered Filled Start Stop Current Ordering Indication Dosage Frequency Signature Comments Components Source Medication Medication Date Date Medication? Clinician (SIG) Name Name varenicline 2018-04 Yes Tobacco TAKE 1 M D (CHANTIX) 1 1-26 dependence TABLET BY Anderso mg tablet 00:00: syndrome MOUTH n 00 TWICE A DAY acetaminoph Yes TAKE 1 en-codeine 8-30 TABLET BY Ancelmo bennett (TYLENOL 00:00: MOUTH n #3) 300 00 EVERY 6 mg-30 mg HOURS tablet NEEDED FOR PAIN meloxicam Yes TAKE 1 (MOBIC) 15 8-29 TABLET BY Ancelmo rso mg tablet 00:00: MOUTH n 00 EVERY DAY temazepam 2018- Yes TK ONE C (RESTORIL) 7-30 PO QHS PRN And erso 30 mg 00:00: n capsule 00 AMLODIPINE Yes 10mg Take 10 mg M D BESYLATE, 5-08 by mouth Andreas o BULK, MISC 15:29: daily. n 18 diphenhydrA 2019-0 Yes 25mg Take 25 mg MD MINE 5-08 by mouth Anderso (BENADRYL) 15:29: as needed. n 25 mg 18 capsule MULTIVITAMI 2019-0 Yes 1{tbl} Take 1 MD N/IRON/FOLI 5-08 tablet by And erso C ACID 15:29: mouth. n (CENTRUM 18 COMPLETE ORAL) citalopram 2019-0 Yes 20mg Take 20 mg M D (CeleXA) 20 5-08 by mouth Ancelmo rso mg tablet 15:29: daily. n 18 rosuvastati 2019-0 Yes 10mg Take 10 mg MD n (CRESTOR) 5-08 by mouth Ancelmo rso 10 mg 15:29: daily. n tablet 18 GLUC/CHND/O 2019-0 Yes Take by M3/DHA/EPA/ 5-08 mouth. Andreas o FISH/STR 15:29: n (GLUCOSAMIN 18 E CHONDROITIN PLUS ORAL) POTASSIUM 2018-0 Yes 1{tbl} Take 1 MD ORAL 5-08 tablet by Anderso 15:29: mouth n 18 daily. aspirin 81 2019-0 Yes 81mg Take 81 mg M D mg EC 5-08 by mouth Anderso tablet 15:29: daily. n 18 CALCIUM 2019-0 Yes Take by ACETATE, 5-08 mouth Anderso BULK, MISC 15:29: daily. n 18 traMADol 2019-0 Yes 50mg Take 50 mg MD (ULTRAM) 50 5-08 by mouth Ancelmo rso mg tablet 15:29: every 6 n 18 (six) hours as needed. cyclobenzap 2019-0 Yes 10mg Take 10 mg MD rine 5-08 by mouth Anderso (FLEXERIL) 15:29: as needed. n 10 mg 18 tablet valACYclovi 2019-0 Yes 500mg Take 500 M D r (VALTREX) 5-08 mg by Anderso 500 mg 15:29: mouth as n tablet 18 needed. Procedures This patient has no known procedures. Plan of Care Planned Activity Planned Date Details Comments Source Future Scheduled Test 1968-10-26 00:00:00 COVID-19 Vaccination MD Chao (1) [code = COVID-19 Vaccination (1)] Encounters Start End Encounter Admission Attending Care Care Encounter Source Date/Time Date/Time Type Type Clinicians Facility Department ID 2020-06-02 2020-06-02 Outpatient SANTOSH Vaughn [facility] [place] [id number] -20 [facility] 12:00:00 12:00:00 [place], [id number] Angela robledo [facility] Results Test Description Test Time Test Comments Results Result Comments Source TISSUE EXAM 2017-01-09 Surgical Pathology 10:20:00 Report Case: [id number] Authorizing Provider: Myles Duque MD Collected: 01/08/2017 0918 Ordering Location: [facility] Received: 01/08/2017 1144 Pathologist: Stephie Robles MD Specimen: Polyp, Colon - Rectum, x3 COLON, RECTAL POLYPS X3, BIOPSY: - HYPERPLASTIC POLYPS Signing Pathologist Direct Phone Line: [phone] cheng signed by Stephie Robles MD on 01/09/2017 at 10:20 [id number] colonoscopyPolyp, colon rectum [id number] is received in fixative and designated as "polyp, colon rectum", and consists of three pink-liu tissue fragments ranging in size from 0.2 to 0.3 cm, in greatest dimension. The specimen is entirely submitted into A1. MG/pl Performed [facility], Department of Pathology, [address] [place] [id number], [facility], Department of Pathology, [address] [place] [address], [facility], [address] [place] [id number], BASIC METABOLIC PANEL 2016-12-16 11:13:00 Test Item Value Reference Range Interpretation Comme nts SODIUM (BEAKER) (test code 145 meq/L 135-148 = 381) POTASSIUM (BEAKER) (test 4.1 meq/L 3.6-5.5 code = 379) CHLORIDE (BEAKER) (test 109 meq/L 98-106 H code = 382) CO2 (BEAKER) (test code = 29 meq/L 20-29 355) BLOOD UREA NITROGEN 14 mg/dL 10- (BEAKER) (test code = 354) CREATININE (BEAKER) (test 0.70 mg/dL 0.50-1.20 code = 358) GLUCOSE RANDOM (BEAKER) 93 mg/dL 70-110 (test code = 652) CALCIUM (BEAKER) (test code 9.1 mg/dL 8.5-10.5 = 697) EGFR (BEAKER) (test code = 88 mL/min/1.73 sq m ESTIMATED GFR IS NOT 1092) ACCURATE CRE ATININE CLEARANCE IN UT EDICTING GLOMERULAR FILT RATION RATE. ESTIMATED GFR IS NOT APPLICABLE FOR DIALYSIS PATIENTS. CBC W/PLT COUNT & AUTO [id number] 10:43:00 Test Item Value Reference Range Interpretation [...]
[2021-07-26] MEDS ORDERED: ASPIRIN 81 MG CHEWABLE TABLET ONE (14:10)
[2021-07-26 14:28] LABS: Absolute Lymphocytes (CBC) 2.2 K/uL (0.7-4.9); Hematocrit 38.5 % (36.0-45.0); Lymphocytes % 28.8 % (15.3-44.8); MPV 8.1 fL (7.6-11.3); RBC Red Blood Cell Count 4.19 M/uL (3.86-4.86)
[2021-07-26 14:35] LABS: Protime INR 0.98
--- NOTE | 2021-07-26 14:57 | RAD REPORT ---
EXAM DESCRIPTION: US - Extremity Venous Uni Ltd - 07/26/2021 2:50 pm CLINICAL HISTORY: SWELLING COMPARISON: None. TECHNIQUE: Real-time sonographic evaluation of the left lower extremity deep venous system was perfo rmed. FINDINGS: Normal compressibility, flow augmentation, phasic flow and spontaneous flow are identified in the left lower extremity common femoral, superficial femoral, popliteal and posterior tibial vein s. No intraluminal filling defects seen. IMPRESSION: No DVT in the left lower extremity.
[2021-07-26 15:05] LABS: ALT/SGPT 30 U/L (12-78); Albumin 3.8 g/dL (3.4-5.0); Alkaline Phosphatase 103 U/L (45-117); BUN Blood Urea Nitrogen 19 mg/dL (7-18); Bicarbonate 27 mmol/L (21-32); Bilirubin Total 0.1 mg/dL (0.2-1.0); Glucose Level 96 mg/dL (74-106); NT PRO-BNP 40 pg/mL (<125); Sodium Level 143 mmol/L (136-145)
[2021-07-26 15:25] LABS: AST/SGOT 22 U/L (15-37); Bilirubin Direct < 0.1 mg/dL (0-0.2); Magnesium 2.4 mg/dL (1.8-2.4)
[2021-07-26 16:03] LABS: SARS-COV-2 RT PCR NEGATIVE (NEGATIVE)
--- NOTE | 2021-07-26 16:33 | RAD REPORT ---
EXAM DESCRIPTION: RAD - Chest Single View - 07/26/2021 3:40 pm CLINICAL HISTORY: CHEST PAIN COMPARISON: Two view chest 03/02/2015 TECHNIQUE: AP portable chest image was obtained 07/26/2021 3:40 pm . FINDINGS: No focal lung parenchymal process. Interstitial pattern is prominent but not clearly diffe rent from prior study. Minimal interstitial edema or infiltrate could be masked in this setting. Heart and vasculature are normal. No measurable pleural effusion and no pneumothorax. No acute bony abnormality seen. No acute aortic findings suspected. IMPRESSION: No acute cardiopulmonary process. Mildly prominent interstitial pattern is not clearly different from prior imaging. This pattern could mask minimal edema or infiltrate.
--- NOTE | 2021-07-26 16:37 | RAD REPORT ---
EXAM DESCRIPTION: CT - Chest For Pe Angio - 07/26/2021 4:04 pm CLINICAL HISTORY: CHEST PAIN COMPARISON: CTANGIO CHEST FOR PE dated 01/16/2009; Chest Single View dated 07/26/2021 TECHNIQUE: Dynamically enhanced 3 mm thick images of the chest were obtained during administration o f approximately 150mL Isovue 370 IV contrast. Coronal and oblique MIP reconstruction images were gene rated and reviewed. Exam utilizes a protocol to evaluate the pulmonary arterial tree. All CT scans are performed using dose optimization technique as appropriate and may include automated exposure control or mA/KV adjustment according to patient size. FINDINGS: No pulmonary emboli are identified. The aorta as imaged shows no acute or suspicious finding. No pericardial thickening or effusion. No infiltrate or mass in the lung parenchyma. No abnormal interstitial thickening or edema seen. Fail ure and volume overload are not suspected. No pleural effusion or pleural thickening. No mediastinal or hilar suspicious masses. No chest wall masses or abnormal axillary lymphadenopathy. IMPRESSION: No pulmonary emboli identified. No other significant or suspicious findings.
--- NOTE | 2021-07-26 17:28 | ER ---
Nurse's Notes [facility] Name: Amie Rivera Age: 55 yrs Sex: Female : 1965 Arrival Date: 07/26/2021 Time: 13:48 Bed 7 Private MD: Diagnosis: Chest pain, unspecified Presentation: 07/26 13:51 Chief complaint: Patient states: she has been having chest tightness since this ap3 morning. Patient reports feeling like her legs are swelling and she is seeing an increase in bruising. Patient was evaluated at the [facility] this morning and was instructed to come to the ED for further evaluation. Coronavirus screen: At this time, the client does not indicate any symptoms associated with coronavirus-19. Ebola Screen: No symptoms or risks identified at this time. Initial Sepsis Screen: Does the patient meet any 2 criteria? No. Patient's initial sepsis screen is negative. Does the patient have a suspected source of infection? No. Patient's initial sepsis screen is negative. Risk Assessment: Do you want to hurt yourself or someone else? Patient reports no desire to harm self or others. Onset of symptoms was July 26, 2021. 13:51 Method Of Arrival: Ambulatory ap3 13:51 Acuity: KIM 3 ap3 Triage Assessment: 13:57 General: Appears in no apparent distress. Behavior is calm, cooperative, appropriate ap3 for age. Pain: Complains of pain in anterior aspect of left upper chest Pain does not radiate. Pain currently is 0 out of 10 on a pain scale. at worst was 4 out of 10 on a pain scale. Neuro: Level of Consciousness is awake, alert, obeys commands, Oriented to person, place, time, situation, Appropriate for age. Cardiovascular: Reports chest pain, Patient's skin is warm and dry. Respiratory: Airway is patent Respiratory effort is even, unlabored. Historical: - Allergies: 13:55 No Known Allergies; ap3 - PMHx: 13:55 Back pain; Hypertensive disorder; Hypercholesterolemia; Anxiety; Obesity; GERD; ADHD; ap3 Arthritis; - Immunization history:: Client reports receiving the 2nd dose of the Covid vaccine, Flu vaccine is up to date. - Social history:: Smoking status: Patient reports the use of cigarette tobacco products, smokes one-half pack cigarettes per day. Screenin:59 Abuse screen: Denies threats or abuse. Nutritional screening: No deficits noted. ap3 Tuberculosis screening: No symptoms or risk factors identified. 14:18 Fall Risk No fall in past 12 months (0 pts). No secondary diagnosis (0 pts). IV access vg1 (20 points). Ambulatory Aid- None/Bed Rest/Nurse Assist (0 pts). Gait- Normal/Bed Rest/Wheelchair (0 pts) Mental Status- Oriented to own ability (0 pts). Total Deleon Fall Scale indicates No Risk (0-24 pts). Assessment: 13:59 Pain: Pain began gradually, 0830 this morning. ap3 14:17 General: Appears in no apparent distress. comfortable, Behavior is calm, cooperative. vg1 Pain: Complains of pain in mid-sternal area Pain does not radiate. Pain currently is 0 out of 10 on a pain scale. Pain began this morning, 0800. Neuro: Level of Consciousness is awake, alert, obeys commands, Oriented to person, place, time, situation, Denies headache. Cardiovascular: Patient's skin is warm and dry. Respiratory: Airway is patent Respiratory effort is even, unlabored, Denies shortness of breath. GI: Patient currently denies nausea, vomiting. : No signs and/or symptoms were reported regarding the genitourinary system. EENT: No signs and/or symptoms were reported regarding the EENT system. Derm: Skin is intact, is healthy with good turgor. Musculoskeletal: Circulation, motion, and sensation intact. 15:18 Reassessment: Patient appears in no apparent distress at this time. Patient and/or vg1 family updated on plan of care and expected duration. Pain level reassessed. Patient is alert, oriented x 3, equal unlabored respirations, skin warm/dry/pink. Patient denies pain at this time. Patient states feeling better. 16:15 Reassessment: Patient appears in no apparent distress at this time. No changes from vg1 previously documented assessment. Patient and/or family updated on plan of care and expected duration. Pain level reassessed. Patient is alert, oriented x 3, equal unlabored respirations, skin warm/dry/pink. 17:18 Reassessment: Patient appears in no apparent distress at this time. Patient and/or vg1 family updated on plan of care and expected duration. Pain level reassessed. Patient is alert, oriented x 3, equal unlabored respirations, skin warm/dry/pink. , MARYAM, PHONE NUMBER [phone] Patient denies pain at this time. Patient states feeling better. Vital Signs: 13:51 BP 121 / 73; Pulse 77; Resp 17; Temp 98.9; Pulse Ox 98% ; Weight 93.89 kg; Height 65 ap3 in. (165.10 cm); Pain 0/10; 15:22 BP 132 / 75; Pulse 73; Resp 15; Pulse Ox 100% ; vg1 16:45 BP 120 / 71; Pulse 68; Resp 15; Pulse Ox 100% on R/A; vg1 20:15 BP 101 / 67; Pulse 64; Resp 16; Pulse Ox 97% on R/A; st1 13:51 Body Mass Index 34.45 (93.89 kg, 165.10 cm) ap3 ED Course: 13:48 Patient arrived in ED. ds1 13:55 Triage completed. ap3 13:58 Magdi Moore PA is PHCP. cp 13:58 Iggy Richardson MD is Attending Physician. cp 13:59 Arm band placed on right wrist. ap3 13:59 Patient maintains SpO2 saturation greater than 95% on room air. ap3 14:01 Jamaica Alberts, RN is Primary Nurse. vg1 14:10 Inserted saline lock: 20 gauge in right antecubital area, using aseptic technique. vg1 ,using aseptic technique. completed by ED Staff. 14:18 Patient has correct armband on for positive identification. Placed in gown. Bed in low vg1 position. Call light in reach. Side rails up X 1. monitor technician on. Pulse ox on. NIBP on. 14:18 No provider procedures requiring assistance completed. vg1 14:52 US Extremity Venous Unilateral Ltd In Process Unspecified. EDMS 15:39 X-ray completed. Portable x-ray completed in exam room. Patient tolerated procedure mh1 well. 15:42 XRAY Chest (1 view) In Process Unspecified. EDMS 16:05 CT Chest For PE Angio In Process Unspecified. EDMS 17:27 Elias Maloney is Hospitalizing Provider. cp 18:17 Anam Perales MD is Hospitalizing Provider. cp 20:15 attempted to call report. charge nurse was unable to locate accepting nurse. I will st1 call back in 10 minutes. 20:18 Patient admitted, IV remains in place. st1 21:00 report was given to SARAVANAN Miranda. All questions and concerns were addressed. st1 Administered Medications: 14:17 Drug: Aspirin Chewable Tablet 324 mg Route: PO; vg1 20:20 Follow up: Response: No adverse reaction st1 18:53 Drug: Pepcid (famotidine) 20 mg Route: IVP; Site: right antecubital; vg1 20:19 Follow up: Response: No adverse reaction st1 18:57 Drug: Nicoderm CQ Patch 21 mg/24 hr 1 patches {Note: RIGHT UPPER ARM.} Route: vg1 Transdermal; Site: affected area; 20:19 Follow up: Response: No adverse reaction st1 Outcome: 17:27 Decision to Hospitalize by Provider. cp 20:18 Admitted to Med/surg accompanied by tech, via stretcher, room 0220, with chart. st1 20:18 Condition: stable 20:18 Instructed on the need for admit, Demonstrated understanding of instructions. 21:38 Patient left the ED. st1 Signatures: Dispatcher [employer] EDMS Dena Vaughn mh1 Sylvia Gutierrez ds1 Magdi Moore PA PA cp Lesa Acevedo RN RN ap3 Jamaica Alberts, RN RN vg1 Marietta Maradiaga, SARAVANAN RN st1 Corrections: (The following items were deleted from the chart) 15:22 15:18 Reassessment: Patient appears in no apparent distress at this time. No changes vg1 from previously documented assessment. Patient and/or family updated on plan of care and expected duration. Pain level reassessed. Patient is alert, oriented x 3, equal unlabored respirations, skin warm/dry/pink. vg1
--- NOTE | 2021-07-26 17:28 | EDPHYS ---
Physician Documentation [facility] Name: Amie Rivera Age: 55 yrs Sex: Female : 1965 Arrival Date: 07/26/2021 Time: 13:48 Bed 7 Private MD: ED Physician Iggy Richardson HPI: 07/26 14:10 This 55 yrs old Female presents to ER via Ambulatory with complaints of Chest Pain. cp 14:10 The patient or guardian reports chest pain that is located primarily in the substernal cp area. 14:10 Onset: this morning. The pain does not radiate. Associated signs and symptoms: cp Pertinent positives: lower extremity swelling, shortness of breath, bruising of lower legs, Pertinent negatives: abdominal pain, cough, diaphoresis, dizziness, syncope, vomiting. The chest pain is described as a pressure. Duration: The patient or guardian reports multiple episodes, that wax and wane. Historical: - Allergies: 13:55 No Known Allergies; ap3 - PMHx: 13:55 Back pain; Hypertensive disorder; Hypercholesterolemia; Anxiety; Obesity; GERD; ADHD; ap3 Arthritis; - Immunization history:: Client reports receiving the 2nd dose of the Covid vaccine, Flu vaccine is up to date. - Social history:: Smoking status: Patient reports the use of cigarette tobacco products, smokes one-half pack cigarettes per day. ROS: 14:13 Constitutional: Negative for body aches, chills, fever, poor PO intake. cp 14:13 Eyes: Negative for injury, pain, redness, and discharge. cp 14:13 ENT: Negative for drainage from ear(s), ear pain, sore throat, difficulty swallowing, difficulty handling secretions. 14:13 Cardiovascular: Positive for chest pain, edema, Negative for palpitations. 14:13 Respiratory: Positive for shortness of breath, Negative for cough, wheezing. 14:13 Abdomen/GI: Negative for abdominal pain, nausea, vomiting, and diarrhea. 14:13 Back: Negative for pain at rest, pain with movement. 14:13 Neuro: Negative for altered mental status, headache, numbness, weakness. 14:13 All other systems are negative. Exam: 14:15 ECG was reviewed by the Attending Physician. cp 14:20 Constitutional: The patient appears in no acute distress, alert, awake, cp non-diaphoretic, non-toxic, well developed, well nourished. 14:20 Head/Face: Normocephalic, atraumatic. cp 14:20 Eyes: Periorbital structures: appear normal, Conjunctiva: normal, no exudate, no injection, Sclera: no appreciated abnormality, Lids and lashes: appear normal, bilaterally. 14:20 ENT: External ear(s): are unremarkable, Nose: is normal, Mouth: Lips: moist, Oral mucosa: pink and intact, moist, Posterior pharynx: Airway: no evidence of obstruction, patent. 14:20 Neck: ROM/movement: is normal, is supple, without pain, no range of motions limitations. 14:20 Chest/axilla: Inspection: normal, Palpation: is normal, no crepitus, no tenderness. 14:20 Cardiovascular: Rate: normal, Rhythm: regular, Pulses: Pulses are 2+ in right radial artery and left radial artery. JVD: is not appreciated. 14:20 Respiratory: the patient does not display signs of respiratory distress, Respirations: normal, no use of accessory muscles, no retractions, labored breathing, is not present, Breath sounds: are clear throughout, no decreased breath sounds, no stridor, no wheezing. 14:20 Abdomen/GI: Inspection: abdomen appears normal, Palpation: abdomen is soft and non-tender, in all quadrants. 14:20 Back: pain, is absent, ROM is normal. 14:20 Musculoskeletal/extremity: DVT Exam: swelling, that is mild, of the left leg, tenderness, that is mild, of the left leg, bluish discoloration, that is mild, of the left leg. 14:20 Neuro: Orientation: to person, place \\T\\ time. Mentation: is normal, Motor: moves all fours, strength is normal, Sensation: is normal. Vital Signs: 13:51 BP 121 / 73; Pulse 77; Resp 17; Temp 98.9; Pulse Ox 98% ; Weight 93.89 kg; Height 65 ap3 in. (165.10 cm); Pain 0/10; 15:22 BP 132 / 75; Pulse 73; Resp 15; Pulse Ox 100% ; vg1 16:45 BP 120 / 71; Pulse 68; Resp 15; Pulse Ox 100% on R/A; vg1 20:15 BP 101 / 67; Pulse 64; Resp 16; Pulse Ox 97% on R/A; st1 13:51 Body Mass Index 34.45 (93.89 kg, 165.10 cm) ap3 MDM: 14:02 Patient medically screened. cp 14:30 Differential diagnosis: acute myocardial infarction, chest wall pain, pleurisy, cp pneumonia, pneumothorax, pulmonary embolus, stable angina, unstable angina. 16:50 The patient was given aspirin in the Emergency Department. cp 16:50 Data reviewed: vital signs, nurses notes, lab test result(s), EKG, radiologic studies, cp CT scan, plain films. Test interpretation: by ED physician or midlevel provider: ECG, plain radiologic studies. 07/26 14:03 Order name: Basic Metabolic Panel; Complete Time: 15:29 cp 07/26 15:30 Interpretation: Normal except: CL 109; BUN 19; GFR 76; CA 8.3. cp 07/26 14:03 Order name: CBC with Diff; Complete Time: 15:29 cp 07/26 14:03 Order name: D-Dimer; Complete Time: 15:29 cp 07/26 14:03 Order name: LFT's; Complete Time: 15:29 cp 07/26 14:03 Order name: Magnesium; Complete Time: 15:29 cp 07/26 14:03 Order name: NT PRO-BNP; Complete Time: 15:29 cp 07/26 14:03 Order name: PT-INR; Complete Time: 15:29 cp 07/26 14:03 Order name: Troponin HS; Complete Time: 15:29 cp 07/26 14:03 Order name: XRAY Chest (1 view); Complete Time: 16:43 cp 07/26 14:03 Order name: US Extremity Venous Unilateral Ltd; Complete Time: 15:29 cp 07/26 14:04 Order name: Ptt, Activated; Complete Time: 15:29 cp 07/26 14:04 Order name: COVID-19/FLU A+B (Document "Date of Onset" if Symptomatic); Complete Time: cp 16:13 07/26 15:45 Order name: CT Chest For PE Angio; Complete Time: 16:43 cp 07/26 14:03 Order name: EKG; Complete Time: 14:04 cp 07/26 14:03 Order name: Cardiac monitoring; Complete Time: 14:16 cp 07/26 14:03 Order name: EKG - Nurse/Tech; Complete Time: 14:16 cp 07/26 14:03 Order name: IV Saline Lock; Complete Time: 14:16 cp 07/26 14:03 Order name: Labs collected and sent; Complete Time: 14:16 cp 07/26 14:03 Order name: O2 Per Protocol; Complete Time: 14:16 cp 07/26 14:03 Order name: O2 Sat Monitoring; Complete Time: 14:16 cp 07/26 16:43 Order name: Diet Regular; Complete Time: 16:44 cp EC:15 Rate is 64 beats/min. Rhythm is regular. [place] interval is normal. QRS interval is normal. cp QT interval is normal. T waves are Inverted in leads aVL, aVR. Interpreted by me. Reviewed by me. Administered Medications: 14:17 Drug: Aspirin Chewable Tablet 324 mg Route: PO; vg1 20:20 Follow up: Response: No adverse reaction st1 18:53 Drug: Pepcid (famotidine) 20 mg Route: IVP; Site: right antecubital; vg1 20:19 Follow up: Response: No adverse reaction st1 18:57 Drug: Nicoderm CQ Patch 21 mg/24 hr 1 patches {Note: RIGHT UPPER ARM.} Route: vg1 Transdermal; Site: affected area; 20:19 Follow up: Response: No adverse reaction st1 Disposition: 07/27 16:28 Co-signature as Attending Physician, Iggy Richardson MD. rn Disposition Summary: 07/26/21 17:27 Hospitalization Ordered Hospitalization Status: Observation cp Location: Telemetry/MedSurg (observation) cp Condition: Stable cp Problem: new cp Symptoms: have improved cp Bed/Room Type: Standard cp Provider: Anam Perales(07/26/21 18:17) cp Room Assignment: 220(07/26/21 20:05) cg Diagnosis - Chest pain, unspecified cp Forms: - Medication Reconciliation Form cp - SBAR form cp Signatures: Dispatcher [employer] EDIggy Barrera MD MD rn Attema, Lee, ROSMERY-C G[employer] MATE M-Cla1 Magdi Moore PA PA cp Nadege Alberts RN RN cg Prokisch, Amanda, RN RN ap3 Garcia, Victoria RN RN vg1 Marietta Maradiaga RN st1 Corrections: (The following items were deleted from the chart) 07/26 18:17 17:27 Elias Maloney cp cp 20:05 17:27 cp
[2021-07-26] MEDS ORDERED: FAMOTIDINE 20 MG/2 ML VIAL IV ONE (18:55)
[2021-07-26] MEDS ORDERED: NICOTINE 21 MG/PAT TD ONE (18:55)
[2021-07-26] MEDS ORDERED: TEMAZEPAM 15 MG CAP PO PRN (20:44)
[2021-07-26] MEDS ORDERED: CALCIUM CARBONATE CHEW 500MG TAB PO PRN (20:44)
[2021-07-26] MEDS ORDERED: FAMOTIDINE 20 MG/2 ML VIAL IV PRN (20:44)
[2021-07-26] MEDS ORDERED: ONDANSETRON 4 MG/2 ML VIAL IV PRN (20:44)
[2021-07-26] MEDS ORDERED: TRAMADOL HCL 50 MG TAB PO PRN (20:44)
[2021-07-26] MEDS ORDERED: GABAPENTIN 300 MG CAP PO PRN (20:44)
[2021-07-26] MEDS ORDERED: CYCLOBENZAPRINE 10 MG TAB PO PRN (20:44)
--- NOTE | 2021-07-26 20:56 | P.HP ---
Certification for Inpatient Patient admitted to: Observation With expected LOS: <2 Midnights Patient will require the following post-hospital care: None Practitioner: I am a practitioner with admitting privileges, knowledge of patient current condition, hospital course, and medical plan of care. Services: Services provided to patient in accordance with Admission requirements found in Title 42 Section 412.3 of the Code of Federal Regulations Patient History Date of Service: 07/26/21 Reason for admission: ACS rule out History of Present Illness: 55-year-old female history of hypertension, hyperlipidemia, GERD, tobacco abuse presents emergency department for chest pain. Pain is described as dull nonradiating substernal not exacerbated or relieved by anything in particular, not associated with any additional signs or symptoms. Patient was evaluated in the emergency department her initial troponin was negative EKG without STEMI chest x-ray unremarkable. Her D-dimer was mildly elevated patient was also complaining of some left lower extremity swelling for this reason a ultrasound of the left lower extremity as well as a CT PE protocol performed which were both negative for blood clots. ED provider assisted in her observation for ACS rule out. Allergies No Known Allergies Allergy (Verified 05/20/12 06:07) Home Medications: Citalopram Hydrobromide [Citalopram HBr] 20 mg PO DAILY 05/20/12 Tramadol HCl 50 mg PO Q4HP PRN 05/20/12 Amlodipine Besylate [Norvasc] 10 mg PO DAILY 01/22/15 Atorvastatin Calcium [Lipitor] 40 mg PO BEDTIME 01/22/15 Cyclobenzaprine [Flexeril] 10 mg PO TID PRN 01/22/15 Home Medication 1 tab PO DAILY 01/22/15 - Past Medical/Surgical History Diabetic: No -: HTN -: Hyperlipidemia -: Back Pain -: choley -: tonsillectomy Psychosocial/ Personal History: Patient lives at home with her family - Family History Mother -: Heart disease, Hypertension, Stroke, Cancer Notes: breast CA Father -: Hypertension - Social History Smoking Status: Current every day smoker Counseled patient to stop smoking for: less than 10 minutes Smoking therapy provided: Yes Alcohol use: No CD- Drugs: No Caffeine use: Yes Place of Residence: Home Review of Systems 10-point ROS is otherwise unremarkable Cardiovascular: Chest Pain, As per HPI Physical Examination - Physical Exam General: Alert, In no apparent distress, Oriented x3 HEENT: Atraumatic, PERRLA, Mucous membr. moist/pink, EOMI, Sclerae nonicteric Neck: Supple, 2+ carotid pulse no bruit, No LAD, Without JVD or thyroid abnormality Respiratory: Clear to auscultation bilaterally, Normal air movement Cardiovascular: Regular rate/rhythm, Normal S1 S2 Gastrointestinal: Normal bowel sounds, No tenderness Musculoskeletal: No tenderness Integumentary: No rashes Neurological: Normal gait, Normal speech, Normal strength at 5/5 x4 extr, Normal tone, Normal affect Lymphatics: No axilla or inguinal lymphadenopathy - Studies Laboratory Data (last 24 hrs) 07/26/21 14:15: APTT 32.6 07/26/21 14:15: PT 10.8, INR 0.98 07/26/21 14:15: WBC 7.7, Hgb 13.3, Hct 38.5, Plt Count 281 07/26/21 14:15: Sodium 143, Potassium 4.0, BUN 19 H, Creatinine 0.78, Glucose 96, Magnesium 2.4, Total Bilirubin 0.1 L, AST 22, ALT 30, Alkaline Phosphatase 103 Assessment and Plan - Plan Assessment: Chest pain rule out ACS Hypertension Hyperlipidemia GERD Tobacco abuse Plan: Chest pain rule out ACS: Monitor on telemetry, trend troponins, aspirin, statin. Cardiology consulted. Hypertension: Losartan, amlodipine continued. Hyperlipidemia: Rosuvastatin continued GERD: Pepcid as needed Tobacco abuse: NicoDerm patch applied, counseled on need for tobacco cessation. DVT PPX: Lovenox Code status: Full Discharge Plan: Home Plan to discharge in: 24 Hours - Advance Directives Does patient have a Living Will: No Does patient have a Durable POA for Healthcare: No - Code Status/Comfort Care Code Status Assessed: Yes (full code) Critical Care: No Time Spent Managing Pts Care (In Minutes): 55
[2021-07-26] MEDS ORDERED: ROSUVASTATIN 10 MG TAB PO SCH (21:00)
[2021-07-26 21:56] VITALS: BMI 35.5
[2021-07-26 23:13] LABS: Urine Appearance Clear (Clear); Urine Bilirubin Negative (Negative); Urine Blood Negative (Negative); Urine Color Yellow (Yellow); Urine Glucose Negative (Negative); Urine Protein Negative (Negative); Urine Specific Gravity >=1.030 (1.005-1.030); Urine Urobilinogen 0.2 mg/dL (0.2-1.0)
[2021-07-26 23:14] LABS: Urine Microscopic Reflex NO UMIC
[2021-07-27 05:52] LABS: Absolute Lymphocytes (CBC) 1.9 K/uL (0.7-4.9); Hematocrit 36.2 % (36.0-45.0); Lymphocytes % 32.9 % (15.3-44.8); MPV 8.1 fL (7.6-11.3); RBC Red Blood Cell Count 3.87 M/uL (3.86-4.86)
[2021-07-27 06:04] LABS: Albumin 3.2 g/dL (3.4-5.0); Bilirubin Total 0.1 mg/dL (0.2-1.0); Protein, Total 6.2 g/dL (6.4-8.2); Troponin High Sensitivity 11.4 pg/mL (<58.9)
[2021-07-27 08:40] VITALS: BP 113/54; TEMP 97.6
[2021-07-27] MEDS ORDERED: ENOXAPARIN 40 MG/0.4 ML SQ SCH (09:00)
[2021-07-27] MEDS ORDERED: ASPIRIN EC 81 MG TAB PO SCH (09:00)
[2021-07-27] MEDS ORDERED: AMLODIPINE 10 MG TAB PO SCH (09:00)
[2021-07-27] MEDS ORDERED: LOSARTAN POTASSIUM 50 MG TABLET PO SCH (09:00)
[2021-07-27 09:42] VITALS: O2SAT 96
--- NOTE | 2021-07-27 09:44 | P.DS ---
Admission Date: 07/26/21 Discharge Date: 07/27/21 Disposition: ROUTINE DISCHARGE Discharge Condition: GOOD Reason for Admission: ACS rule out Brief History of Present Illness: Patient is 55 years of age with a metabolic syndrome admitted with substernal chest discomfort he had complains of severe GERD takes Tums on a regular basis Hospital Course: There was no evidence of DVT pulmonary embolism or any infection acute NH ruled out normal EKG cardiac enzymes all normal laboratory data all unremarkable and complaining of significant GERD to use PPI that has been faxed to her pharmacy also informed the patient to follow-up with the cardiology possible outpatient stress test high risk due to her metabolic syndrome coronary artery disease The time of discharge patient alert oriented responsive cooperative vital signs all okay chest clear cardiovascular system heart sounds normal no new complaints Vital Signs/Physical Exam: Temp Pulse Resp BP Pulse Ox 97.6 F 61 12 113/54 L 96 07/27/21 08:00 07/27/21 08:00 07/27/21 08:00 07/27/21 08:00 07/27/21 08:00 Laboratory Data at Discharge: WBC 5.7 K/uL (4.3-10.9) D 07/27/21 05:16 Hgb 12.2 g/dL (12.0-15.0) 07/27/21 05:16 Hct 36.2 % (36.0-45.0) 07/27/21 05:16 Plt Count 254 K/uL (152-406) 07/27/21 05:16 PT 10.8 SECONDS (9.5-12.5) 07/26/21 14:15 INR 0.98 07/26/21 14:15 APTT 32.6 SECONDS (24.3-36.9) 07/26/21 14:15 Sodium 142 mmol/L (136-145) 07/27/21 05:16 Potassium 4.0 mmol/L (3.5-5.1) 07/27/21 05:16 BUN 24 mg/dL (7-18) H 07/27/21 05:16 Creatinine 0.84 mg/dL (0.55-1.3) 07/27/21 05:16 Glucose 69 mg/dL (74-106) L 07/27/21 05:16 Magnesium 2.4 mg/dL (1.8-2.4) 07/26/21 14:15 Total Bilirubin 0.1 mg/dL (0.2-1.0) L 07/27/21 05:16 AST 19 U/L (15-37) 07/27/21 05:16 ALT 27 U/L (12-78) 07/27/21 05:16 Alkaline Phosphatase 91 U/L (45-117) 07/27/21 05:16 Home Medications: Amlodipine Besylate [Norvasc] 10 mg PO DAILY 01/22/15 Cyclobenzaprine [Flexeril*] 10 mg PO TID PRN 01/22/15 Acetaminophen with Codeine [Acetaminophen-Cod #3 Tablet] 1 tab PO DAILY 07/26/21 Aspirin 81 mg PO DAILY 07/26/21 Ca/D3/Mag Ox/Zinc/Truck Mechanic Apprentice/Mani/Bor [Calcium 600-D3 Plus Caplet] 1 tab PO DAILY 07/26/21 Gabapentin 300 mg PO BID 07/26/21 Losartan Potassium 50 mg PO DAILY 07/26/21 Rosuvastatin [Crestor*] 10 mg PO DAILY 07/26/21 Temazepam 30 mg PO DAILY PRN 07/26/21 Bupropion HCl [Wellbutrin Xl] 300 mg PO DAILY 07/27/21 Esomeprazole Mag Trihydrate [Nexium] 40 mg PO DAILY #30 capsule. 07/27/21 Estradiol [Vagifem] 10 mcg PO SEECOM 07/27/21 Glucos Sul 2Kcl/MSM/Chond/C/Mn [Glucosamine Chondroitin Cap] 1 cap PO BID 07/27/21 Meloxicam 15 mg PO DAILY 07/27/21 Tramadol HCl [Ultram] 50 mg PO DIRECTED PRN 07/27/21 New Medications: Esomeprazole Mag Trihydrate [Nexium] 40 mg PO DAILY #30 capsule. Physician Discharge Instructions: Follow-up with primary care doctor and cardiology for possible outpatient stress test Nexium has been faxed to the pharmacy Followup: Roderick Adams MD [Primary Care Provider] -
--- NOTE | 2021-07-30 11:25 | EKG ---
Test Date: 2021-07-26 Test Time: 14:09:07 Wide Area Network Administrator: ALP MEASUREMENT RESULTS: Intervals: Rate: 64 OH: 144 QRSD: 90 QT: 414 QTc: 427 [place]: P: 63 OH: 144 QRS: 49 T: 69 INTERPRETIVE STATEMENTS: Normal sinus rhythm Normal ECG Compared to ECG 01/23/2015 07:00:16 Sinus bradycardia no longer present Electronically Signed On 07-30-21 11:14:06 CDT by Lv Mendosa
== END 2021-07-27 10:45 | disposition home or self-care (01) ==
LOC: ER 13:40 → ERHOLD 20:23 → 2ND 20:32
PROVIDERS: ADMIT Internal Medicine Sleep Medicine; ATTEND Internal Medicine Sleep Medicine
DX: R07.9 Chest pain, unspecified (principal); I10 Essential (primary) hypertension; E78.5 Hyperlipidemia, unspecified; K21.9 Gastro-esophageal reflux disease without esophagitis; E88.81 Metabolic syndrome and other insulin resistance; I25.10 Atherosclerotic heart disease of native coronary artery without angina pectoris; M79.89 Other specified soft tissue disorders; M54.9 Dorsalgia, unspecified; M19.90 Unspecified osteoarthritis, unspecified site; F41.9 Anxiety disorder, unspecified; F90.9 Attention-deficit hyperactivity disorder, unspecified type; E66.9 Obesity, unspecified; Z68.35 Body mass index [BMI] 35.0-35.9, adult; F17.210 Nicotine dependence, cigarettes, uncomplicated; Z71.6 Tobacco abuse counseling; Z79.899 Other long term (current) drug therapy; Z90.49 Acquired absence of other specified parts of digestive tract; Z20.822 Contact with and (suspected) exposure to COVID-19; Z82.49 Family history of ischemic heart disease and other diseases of the circulatory system; Z82.3 Family history of stroke; Z80.3 Family history of malignant neoplasm of breast
CPT/HCPCS: 93005; 85025 ×2; 80048; 36415; 83735; 85610; 85379; 80076; 85730; 81003; 84484 ×3; 80053; 83880; 0240U; 71275; 71045; 93971; 96374; 99285; Q9967; J1650; G0378 ×3

== ENCOUNTER → 2023-10-01 | Day surgery (SDC) | payer OTHER ==
[2011-08-03 07:49] VITALS: BP 134/82
--- NOTE | 2023-10-01 12:48 | RAD REPORT ---
EXAM DESCRIPTION: US - Guided FNA Non Breast - 10/01/2023 10:34 am CLINICAL HISTORY: R59.0 COMPARISON: US. GUIDANCE FOR NDL PLACE. dated 01/29/2012 FINDINGS: Preoperative diagnosis: Left thyroid suspicious nodule. Post operative diagnosis: Same. Conscious Sedation: None Fluoroscopy time: None Contrast used: None Estimated blood loss: Minimal Specimens:As below Informed consent was obtained following discussion of the relevant risks and benefits with the patien t. Time-out procedure was performed. The anterior neck was prepped and draped in the usual sterile fa shion. 1% lidocaine was infiltrated into the subcutaneous tissues for local anesthesia. Real time ult rasound scanning of the thyroid gland demonstrated a dominant Iso to hyperechoic left thyroid nodule measuring up to 3 cm. Under ultrasound guidance, using numerous long and short 25 gauge needles were utilized to obtain fine-needle aspiration/ cytology samples. A total of 5 passes were obtained of thi s lesion and sent to pathology for evaluation. There were no complications. The patient left the radi ology department in stable condition. IMPRESSION: Successful ultrasound-guided left thyroid fine-needle aspiration biopsy/cytology as ritu mccormack
== END ==
LOC: FNA 09:18
PROVIDERS: ATTEND Family Medicine
PROC: 0GBG3ZX Excision of Left Thyroid Gland Lobe, Percutaneous Approach, Diagnostic (ICD-10-PCS; principal; 2023-10-01)
DX: R59.0 Localized enlarged lymph nodes (principal)
CPT/HCPCS: 88162; 88305